=== PATIENT | female | born 1960 | race Caucasian/White ===

== ENCOUNTER 2019-10-16 15:44 | Inpatient (IN) | payer MEDICAID, OTHER ==
[~2019-10-16] VITALS: Ht 162.6 cm; Wt 50.5 kg
[~2019-10-16 15:44] MED LIST: BACL10TA PO; LISI-660 PO; QUET25TA PO
[2019-10-16 19:35] LABS: BASOPHILS % (AUTO) 0.6 % (0.0-2.0); EOSINOPHILS % (AUTO) 2.2 % (1.0-6.0); HEMATOCRIT 38.5 % (36-46); HEMOGLOBIN 13.4 g/dL (12.0-16.0); LYMPHOCYTES # (AUTO) 2.9 K/uL (1.0-4.8); LYMPHOCYTES % (AUTO) 48.1 % (22.0-44.0); MEAN CORPUSCULAR HEMOGLOBIN 32.5 pg (26.0-34.0); MEAN CORPUSCULAR HGB CONC 34.9 G/dL (31.0-37.0); MEAN CORPUSCULAR VOLUME 93 fL (80-100); MONOCYTES # (AUTO) 0.5 K/uL (0.1-1.0); MONOCYTES % (AUTO) 8.7 % (2.0-9.0); NEUTROPHILS # (AUTO) 2.5 K/uL (1.8-7.7); NEUTROPHILS % (AUTO) 40.4 % (40.0-70.0); PLATELET COUNT (AUTO) 285 K/uL (150-450); RED BLOOD CELL COUNT(AUTO) 4.13 MIL/uL (4.00-5.20); RED CELL DISTRIBUTION WIDTH 13.3 % (11.5-14.5)
[2019-10-16 19:50] LABS: ANION GAP 7 mmol/L (8-16); CALCIUM, TOTAL 8.9 mg/dL (8.8-10.5); CARBON DIOXIDE 29 mmol/L (22-29); CHLORIDE 104 mmol/L (98-107); CREATININE 0.63 mg/dL (0.60-1.30); GLOMERULAR FILTR. RATE CALC > 60 mL/min (>60); GLUCOSE,RANDOM 74 mg/dL (70-110); POTASSIUM 3.7 mmol/L (3.5-5.1); SODIUM SERUM 140 mmol/L (136-145); UREA NITROGEN, BLOOD 10 mg/dL (7-18)
[2019-10-16 19:56] LABS: ALANINE AMINOTRANSFERASE 18 U/L (12-78); ALBUMIN 3.4 g/dL (3.4-5.0); ALKALINE PHOSPHATASE 69 U/L (46-116); ASPARTATE AMINOTRANSFERASE 13 U/L (15-37); BILIRUBIN,TOTAL 0.3 mg/dL (0.1-1.0); TOTAL PROTEIN, SERUM 6.4 g/dL (6.4-8.2)
[2019-10-16] MEDS ORDERED: HALOPERIDOL 5 MG TABLET PO PRN (20:00)
[2019-10-16] MEDS ORDERED: ZOLPIDEM TARTRATE 10 MG TABLET PO PRN (20:00)
[2019-10-16] MEDS ORDERED: LORazepam 2 MG TABLET PO PRN (20:00)
[2019-10-17 01:08] VITALS: BP 152/82
[2019-10-17] MEDS ORDERED: INFLUENZA VIRUS VACCINE QVS 2019-20 (3YR+)/PF 60 MCG/0.5 ML SYRINGE IM ONE (01:45)
[2019-10-17 08:01] LABS: CHOL/HDL RATIO 2.8 (3.9-5.7)
[2019-10-17 08:56] VITALS: BP 138/99
[2019-10-17] MEDS: BACLOFEN 10 MG TABLET PO SCH ×4 (10:12→20:33)
[2019-10-17] MEDS: LISINOPRIL 5 MG TABLET PO SCH ×2 (10:12→17:10)
[2019-10-17] MEDS ORDERED: LOPERAMIDE HCL 2 MG CAPSULE PO PRN (10:15)
[2019-10-17] MEDS ORDERED: PETROLATUM,WHITE 28 GM JELLY TP PRN (10:15)
[2019-10-17] MEDS ORDERED: ALBUTEROL SULFATE HFA 90 MCG/PUFF 8 GM INHALER IH PRN (10:15)
[2019-10-17] MEDS ORDERED: MAGNESIUM HYDROXIDE SUSPENSION 30 ML UDCUP PO PRN (10:15)
[2019-10-17] MEDS ORDERED: ACETAMINOPHEN 325 MG TABLET PO PRN (10:15)
[2019-10-17] MEDS ORDERED: ONDANSETRON HCL 4 MG TABLET PO PRN (10:15)
[2019-10-17] MEDS ORDERED: MAG HYDROX/AL HYDROX/SIMETH ES 30 ML SUSPENSION UDCUP PO PRN (10:15)
[2019-10-17] MEDS ORDERED: NICOTINE 14 MG/24 HOUR PATCH TD PRN (10:15)
[2019-10-17] MEDS ORDERED: DOCUSATE SODIUM 100 MG CAPSULE PO PRN (10:15)
[2019-10-17] MEDS ORDERED: GuaiFENesin/D-METHORPHAN [SUGAR-FREE] 200-20MG/10 ML SYRUP UDCUP PO PRN (10:15)
[2019-10-17] MEDS ORDERED: CloNIDine HCL 0.1 MG TABLET PO PRN (10:15)
[2019-10-17] MEDS: ESCITALOPRAM OXALATE 10 MG TABLET PO SCH (13:01)
[2019-10-17 17:19] VITALS: BP 124/75
[2019-10-17] MEDS: QUEtiapine FUMARATE 25 MG TABLET PO SCH (20:33)
[2019-10-18 09:21] VITALS: BP 121/85
[2019-10-18] MEDS: ESCITALOPRAM OXALATE 10 MG TABLET PO SCH (09:44)
[2019-10-18] MEDS: LISINOPRIL 5 MG TABLET PO SCH ×2 (09:44→18:03)
[2019-10-18] MEDS: BACLOFEN 10 MG TABLET PO SCH ×4 (09:45→21:08)
[2019-10-18 16:51] VITALS: BP 148/88
[2019-10-18] MEDS: QUEtiapine FUMARATE 25 MG TABLET PO SCH (21:07)
[2019-10-19] MEDS: ESCITALOPRAM OXALATE 10 MG TABLET PO SCH (09:37)
[2019-10-19] MEDS: LISINOPRIL 5 MG TABLET PO SCH ×2 (09:37→16:53)
[2019-10-19] MEDS: BACLOFEN 10 MG TABLET PO SCH ×4 (09:38→20:29)
[2019-10-19 10:20] VITALS: BP 119/86
[2019-10-19 18:29] VITALS: BP 129/96
[2019-10-19] MEDS: QUEtiapine FUMARATE 25 MG TABLET PO SCH (20:29)
[2019-10-20 08:58] VITALS: BP 117/53
[2019-10-20] MEDS: BACLOFEN 10 MG TABLET PO SCH ×4 (10:45→20:43)
[2019-10-20] MEDS: ESCITALOPRAM OXALATE 10 MG TABLET PO SCH (10:47)
[2019-10-20] MEDS: LISINOPRIL 5 MG TABLET PO SCH ×2 (10:47→17:03)
[2019-10-20 16:57] VITALS: BP 129/80
[2019-10-20] MEDS: IBUPROFEN 400 MG TABLET PO PRN (17:03)
[2019-10-20 20:38] VITALS: BP 122/66
[2019-10-20] MEDS: QUEtiapine FUMARATE 25 MG TABLET PO SCH (20:48)
[2019-10-21 08:00] VITALS: BP 127/70
[2019-10-21] MEDS: BACLOFEN 10 MG TABLET PO SCH ×4 (09:52→20:28)
[2019-10-21 09:54] VITALS: BP 127/70
[2019-10-21] MEDS: IBUPROFEN 400 MG TABLET PO PRN (09:54)
[2019-10-21] MEDS: ESCITALOPRAM OXALATE 10 MG TABLET PO SCH (09:54)
[2019-10-21] MEDS: LISINOPRIL 5 MG TABLET PO SCH ×2 (09:54→16:12)
[2019-10-21 16:42] VITALS: BP 149/70
[2019-10-21] MEDS: QUEtiapine FUMARATE 25 MG TABLET PO SCH (20:27)
[2019-10-22 02:35] VITALS: BP 152/70
[2019-10-22] MEDS: IBUPROFEN 400 MG TABLET PO PRN ×2 (02:36→14:50)
[2019-10-22 08:38] VITALS: BP 152/91
[2019-10-22] MEDS: ESCITALOPRAM OXALATE 10 MG TABLET PO SCH (08:56)
[2019-10-22] MEDS: LISINOPRIL 5 MG TABLET PO SCH ×2 (08:56→17:46)
[2019-10-22] MEDS: BACLOFEN 10 MG TABLET PO SCH ×4 (08:56→20:31)
[2019-10-22 14:50] VITALS: BP 140/94
[2019-10-22 17:06] VITALS: BP 151/85
[2019-10-22] MEDS: QUEtiapine FUMARATE 25 MG TABLET PO SCH (20:30)
[2019-10-23] MEDS: IBUPROFEN 400 MG TABLET PO PRN ×2 (02:27→17:00)
[2019-10-23] MEDS: ESCITALOPRAM OXALATE 10 MG TABLET PO SCH (09:12)
[2019-10-23] MEDS: LISINOPRIL 5 MG TABLET PO SCH ×2 (09:12→16:57)
[2019-10-23] MEDS: BACLOFEN 10 MG TABLET PO SCH ×4 (09:12→20:47)
[2019-10-23 12:46] VITALS: BP 116/76
[2019-10-23 18:04] VITALS: BP 155/101
[2019-10-23] MEDS: QUEtiapine FUMARATE 25 MG TABLET PO SCH (20:27)
[2019-10-24 00:25] VITALS: BP 144/96
[2019-10-24] MEDS: IBUPROFEN 400 MG TABLET PO PRN (02:59)
[2019-10-24] MEDS: LISINOPRIL 5 MG TABLET PO SCH ×2 (08:41→16:40)
[2019-10-24] MEDS: BACLOFEN 10 MG TABLET PO SCH ×4 (08:41→20:36)
[2019-10-24] MEDS: ESCITALOPRAM OXALATE 10 MG TABLET PO SCH (08:41)
[2019-10-24 09:02] VITALS: BP 158/99
[2019-10-24 12:56] LABS: BASOPHILS % (AUTO) 0.3 % (0.0-2.0); EOSINOPHILS % (AUTO) 0.5 % (1.0-6.0); HEMATOCRIT 40.8 % (36-46); HEMOGLOBIN 14.2 g/dL (12.0-16.0); LYMPHOCYTES # (AUTO) 1.3 K/uL (1.0-4.8); LYMPHOCYTES % (AUTO) 15.5 % (22.0-44.0); MEAN CORPUSCULAR HEMOGLOBIN 32.2 pg (26.0-34.0); MEAN CORPUSCULAR HGB CONC 34.9 G/dL (31.0-37.0); MEAN CORPUSCULAR VOLUME 92 fL (80-100); MONOCYTES # (AUTO) 0.8 K/uL (0.1-1.0); NEUTROPHILS # (AUTO) 6.1 K/uL (1.8-7.7); NEUTROPHILS % (AUTO) 73.7 % (40.0-70.0); PLATELET COUNT (AUTO) 249 K/uL (150-450); RED BLOOD CELL COUNT(AUTO) 4.43 MIL/uL (4.00-5.20); RED CELL DISTRIBUTION WIDTH 12.6 % (11.5-14.5)
[2019-10-24 13:12] LABS: ALANINE AMINOTRANSFERASE 25 U/L (12-78); ALBUMIN 4.2 g/dL (3.4-5.0); ALKALINE PHOSPHATASE 70 U/L (46-116); ANION GAP 7 mmol/L (8-16); ASPARTATE AMINOTRANSFERASE 15 U/L (15-37); BILIRUBIN,TOTAL 0.3 mg/dL (0.1-1.0); CALCIUM, TOTAL 9.2 mg/dL (8.8-10.5); CARBON DIOXIDE 30 mmol/L (22-29); CHLORIDE 106 mmol/L (98-107); CREATININE 0.53 mg/dL (0.60-1.30); GLOMERULAR FILTR. RATE CALC > 60 mL/min (>60); GLUCOSE,RANDOM 118 mg/dL (70-110); POTASSIUM 4.6 mmol/L (3.5-5.1); SODIUM SERUM 143 mmol/L (136-145); UREA NITROGEN, BLOOD 21 mg/dL (7-18)
[2019-10-24 16:32] VITALS: BP 159/101
[2019-10-24] MEDS ORDERED: QUEtiapine FUMARATE 100 MG TABLET PO SCH (21:00)
[2019-10-25 01:22] LABS: APPEARANCE,URINE CLEAR (CLEAR); BILIRUBIN,URINE NEGATIVE (NEGATIVE); GLUCOSE, URINE (UA) NEGATIVE (NEGATIVE); KETONES,URINE TRACE mg/dL (NEGATIVE); LEUKOCYTE ESTERASE ,URINE NEGATIVE (NEGATIVE); NITRATE,URINE NEGATIVE (NEGATIVE); OCCULT BLOOD,URINE NEGATIVE (NEGATIVE); PROTEIN,URINE NEGATIVE (NEGATIVE)
[2019-10-25 01:28] VITALS: BP 145/78
[2019-10-25 01:32] LABS: AMPHET/METH SCREEN,URINE NEGATIVE (NEGATIVE); BARBITURATE SCREEN, URINE NEGATIVE (NEGATIVE); BENZODIAZEPINES SCREEN,URINE NEGATIVE (NEGATIVE); CANNABINOID SCREEN,URINE NEGATIVE (NEGATIVE); COCAINE SCREEN,URINE NEGATIVE (NEGATIVE); METHADONE SCREEN, URINE NEGATIVE (NEGATIVE); OPIATE SCREEN,URINE NEGATIVE (NEGATIVE); PHENCYCLIDINE SCREEN,URINE NEGATIVE (NEGATIVE)
[2019-10-25 08:42] VITALS: BP 135/90
[2019-10-25] MEDS: BACLOFEN 10 MG TABLET PO SCH ×3 (09:18→16:49)
[2019-10-25] MEDS: ESCITALOPRAM OXALATE 10 MG TABLET PO SCH (09:18)
[2019-10-25] MEDS: LISINOPRIL 5 MG TABLET PO SCH ×2 (09:18→16:48)
[2019-10-25] MEDS ORDERED: QUET100T PO (13:42)
[2019-10-25] MEDS ORDERED: ESCI5TAB PO (13:45)
== END 2019-10-25 18:15 | disposition home or self-care (01) | DRG 885 ==
LOC: EMS 15:44 → 3EI 22:00
DX: F33.2 Major depressive disorder, recurrent severe without psychotic features (principal); R45.851 Suicidal ideations; G43.909 Migraine, unspecified, not intractable, without status migrainosus; I10 Essential (primary) hypertension; F10.10 Alcohol abuse, uncomplicated; Y90.9 Presence of alcohol in blood, level not specified; F41.9 Anxiety disorder, unspecified; F19.10 Other psychoactive substance abuse, uncomplicated; Z91.5 Personal history of self-harm; Z87.891 Personal history of nicotine dependence; Z79.899 Other long term (current) drug therapy; Z28.21 Immunization not carried out because of patient refusal
CPT/HCPCS: G0480